=== PATIENT | male | born 1990 | race Caucasian/White ===

== ENCOUNTER 2020-08-05 12:02 | Emergency (ER) | payer BC ==
[~2020-08-05] VITALS: Ht 185.4 cm; Wt 92.0 kg
--- NOTE | 2020-08-05 12:13 | NUR ---
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
[2020-08-05 14:20] LABS: BASOPHILS % (AUTO) 1 % (0-1); EOSINOPHILS % (AUTO) 1 % (1-7); LYMPHOCYTES % (AUTO) 30 % (22-44); MEAN CORPUSCULAR HEMOGLOBIN 32.3 pg (27.5-34.5); MEAN CORPUSCULAR HGB CONC 34.7 g/dL (33.2-36.2); MEAN PLATELET VOLUME 8.6 fL (7.4-10.4); MONOCYTES % (AUTO) 7 % (2-9); NEUTROPHILS % (AUTO) 61 % (42-75); PLATELET COUNT 219 x10^3/uL (130-400); RED BLOOD COUNT 5.12 x10^6/uL (4.38-5.82); RED CELL DISTRIBUTION WIDTH 12.9 % (9.4-14.8)
[2020-08-05 14:22] LABS: MD NO
[2020-08-05 14:30] LABS: ALBUMIN 4.1 g/dL (3.4-5.0); ANION GAP 6 mmol/L (5-15); CALCIUM 8.7 mg/dL (8.5-10.1); CHLORIDE 110 mmol/L (98-107)
[2020-08-05 14:36] LABS: ALANINE AMINOTRANSFERASE 25 U/L (12-78); ALKALINE PHOSPHATASE 67 U/L (45-117); BILIRUBIN,TOTAL 1.1 mg/dL (0.2-1.0); CREATININE 1.15 mg/dL (0.7-1.3); TOTAL PROTEIN 7.2 g/dL (6.4-8.2); TROPONIN I < 0.015 ng/mL (0.000-0.045)
[2020-08-05 14:57] VITALS: BP 127/64
--- NOTE | 2020-08-05 14:58 | NUR ---
BREAK RN: PT LYING ON GURNEY COMFORTATBLY. UP FOR RECHECK BY ERMD. XIONG.
--- NOTE | 2020-08-05 15:30 | NUR ---
Patient is resting comfortably in bed. Vital Signs within normal limits.
== END 2020-08-05 15:56 | disposition home or self-care (01) ==
LOC: ED 15:50
DX: G43.009 Migraine without aura, not intractable, without status migrainosus (principal); H53.8 Other visual disturbances; R00.9 Unspecified abnormalities of heart beat; R94.31 Abnormal electrocardiogram [ECG] [EKG]; F17.210 Nicotine dependence, cigarettes, uncomplicated
CPT/HCPCS: 36415; 70450; 71045; 80053; 84484; 85025; 93005; 99285; 99406